=== PATIENT | male | born 1995 | race Caucasian/White ===

== ENCOUNTER 2016-12-08 12:18 | Emergency (ER) | payer BC, OTHER ==
[2016-12-08 12:23] VITALS: RESP 16
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
[2016-12-08 14:27] VITALS: BP 140/71; PULSE 71; TEMP 97.9; O2SAT 96
== END 2016-12-08 14:27 | disposition home or self-care (01) ==
DX: G44.82 Headache associated with sexual activity (principal)

== ENCOUNTER 2016-12-10 13:01 | Emergency (ER) | payer OTHER ==
[2016-12-10 13:08] VITALS: BP 122/70; PULSE 52; RESP 18; TEMP 97.9; O2SAT 96
== END 2016-12-10 13:44 | disposition left against medical advice (07) ==
DX: Z53.21 Procedure and treatment not carried out due to patient leaving prior to being seen by health care provider (principal)

== ENCOUNTER 2016-12-10 20:54 | Emergency (ER) | payer OTHER ==
[2016-12-10 21:00] VITALS: O2SAT 96
[2016-12-10] MEDS ORDERED: NS 1,000 ML IV ONE (21:38)
[2016-12-10] MEDS ORDERED: IOPAMIDOL (ISOVUE-300) 100 ML BTL ONE (21:50)
[2016-12-10] MEDS ORDERED: CYCLOBENZAPRINE 10 MG TAB PO ONE (21:50)
--- NOTE | 2016-12-10 21:52 | EDPHY ---
H & P Stated Complaint: neck tension, pcp told to come for LP and MRI HPI/ROS: CHIEF COMPLAINT: Neck pain, injury HISTORY OF PRESENT ILLNESS: Patient complains of posterior neck pain and soft tissue. This started 2 days ago while having intercourse. He felt a sudden onset of pain in the neck it was severe. He was evaluated here with CT scan of the head that was negative. He was discharged home he has been taking Advil. The pain was better the next morning, but today it is significantly returned. No midline tenderness. No headache. No nausea or vomiting. No stiffness of the neck. No neuro complaints distally. No other associated complaints with this. Contacted a primary care physician that he associates with, and they recommend that he come here for further testing. He says he was has not come here. He was actually sitting in the waiting room earlier today and felt that he did not need to be of thus he left and then came back. REVIEW OF SYSTEMS: Ten systems reviewed and are negative unless otherwise noted in the HPI PAST MEDICAL HISTORY: Denies any medical history SOCIAL HISTORY: Smokes tobacco FAMILY HISTORY: Noncontributory EXAMINATION General Appearance: Alert, no distress Head: normocephalic, atraumatic Eyes: Pupils equal and round, no conjunctival pallor or injection ENT, Mouth: Mucous membranes moist Neck: Normal inspection, supple. No midline tenderness. No crepitus, step- off or deformity. No meningismus or rigidity. There is tenderness in the soft tissue, paraspinous musculature throughout the neck. There is tenderness at the occiput at the insertion of the musculature. Respiratory: No distress or retractions. Lungs are clear Cardiovascular: Regular rate and rhythm. No murmur. Gastrointestinal: Abdomen is soft and nontender Back: No bony tenderness. Normal range of motion. Neurological: GCS 15. A&O, nonfocal, normal gait. Strength is symmetric in all 4 limbs. Skin: Warm and dry, no rash. No petechiae or purpura Extremities: Nontender, no pedal edema Psychiatric: Mood and affect normal DIFFERENTIAL DIAGNOSES: Including but not limited to muscular strain, muscle spasm, muscular tear, ligamentous injury, hematoma MDM: 9:49 p.m. Continuing neck pain without any meningismus or rigidity. No headache of any kind. This is temporal and colicky. Neuro intact. Imaging was not performed of the neck, thus I will obtain a CT scan of the neck soft tissue. Patient was instructed to present to ED by a PCP that felt he needed an LP and MRI. This was without examining the patient. I do not feel he warrants an LP are MRI at this time. He has no headache or meningismus. He has normal vital signs. His neuro exam is fully and intact. He has no evidence of subarachnoid hemorrhage, meningitis, epidural hematoma or intracranial abnormality. He is resting comfortably in no acute distress. Examination does exhibit muscular strain and muscle spasm of the paraspinous musculature of the neck. 10:30 p.m. Patient re-evaluated. Resting comfortably in no acute distress. Neck pain is improving. Still has no midline tenderness. No meningismus. Neuro intact. 10:55 p.m. Notified by radiologist Dr. Duarte. CT scan of the neck reveals no acute findings. I have re-evaluated the patient. He is feeling 100% improved on the Flexeril. No pain of any kind. Discharged home with continue Flexeril medication as needed every 8 hours. Continue Advil [id number] as needed. Follow up with primary care physician. ED precautions discussed. He is comfortable with this plan and discharged home stable condition SUPERVISION: Patient was evaluated in conjunction with the supervising physician. Please see their note for details. Source: Patient Exam Limitations: No limitations - Personal History Current Tetanus Diphtheria and Acellular Pertussis (TDAP): Yes Tetanus Vaccine Date: 2011 - Medical/Surgical History Hx Asthma: No Hx Chronic Respiratory Disease: No Hx Diabetes: No Hx Cardiac Disease: No Hx Renal Disease: No Hx Cirrhosis: No Hx Alcoholism: No Hx HIV/AIDS: No Hx Splenectomy or Spleen Trauma: No Other PMH: denies - Social History Smoking Status: Current some day smoker Constitutional: Initial Vital Signs Temperature (C) 98.2 F 12/10/16 20:58 Heart Rate 97 12/10/16 20:58 Respiratory Rate 18 12/10/16 20:58 Blood Pressure 145/84 H 12/10/16 20:58 O2 Sat (%) 96 12/10/16 20:58 O2 Delivery Mode Room Air Allergies/Adverse Reactions: No Known Allergies Allergy (Verified 12/10/16 13:05) Home Medications: Medication Instructions Recorded Cyclobenzaprine [Flexeril 10 MG 10 mg PO TID PRN #15 tab 08/14/17 (*)] Medical Decision Making - Diagnostics Imaging Results: Imaging Impressions Neck CT 12/10/16 21:39 Impression: No evidence of neck hematoma, abscess, focal fluid collection, or significant adenopathy. Findings and recommendations discussed with Emergency Department physicianGerman at 22:43 hour, 12/10/2016. Final report concurs with initial preliminary interpretation. - Data Points Laboratory Results: 12/10/16 21:57 POC Hgb 17.7 gm/dL H gm/dL (13.7-17.5) POC Hct 52 % H % (40-51) POC Sodium 143 mEq/L mEq/L (134-144) POC Potassium 4.0 mEq/L mEq/L (3.3-5.0) POC Chloride 104 mEq/L mEq/L (97-110) POC BUN 11 mg/dL mg/dL (7-23) POC Creatinine 0.7 mg/dL mg/dL (0.7-1.3) POC Glucose 88 mg/dL mg/dL (70-100) Medications Given: Discontinued Medications Cyclobenzaprine HCl (Flexeril) 10 mg PO EDNOW ONE Stop: 12/10/16 21:51 Last Admin: 12/10/16 21:58 Dose: 10 mg Sodium Chloride (Ns) 1,000 mls @ 0 mls/hr IV ONCE ONE; Wide Open PRN Reason: Protocol Stop: 12/10/16 21:39 Last Admin: 12/10/16 21:58 Dose: 1,000 mls Point of Care Test Results: 12/10/16 21:57 POC Sodium 143 POC Potassium 4.0 POC Chloride 104 POC BUN 11 POC Creatinine 0.7 POC Glucose 88 Departure - Departure Disposition: Home, Routine, Self-Care Clinical Impression: Cervical myofascial strain Qualifiers: Encounter type: initial encounter Qualified Code(s): S16.1XXA - Strain of muscle, fascia and tendon at neck level, initial encounter Condition: Good Instructions: Cervical Strain (ED) Additional Instructions: 1. Flexeril as prescribed as needed 2. [id number] anti-inflammatories as knee 3. Follow up with primary care physician for definitive care Referrals: NONE *PRIMARY CARE P,. [Primary Care Provider] - As per Instructions Gen Carlos MD [Medical Doctor] - As per Instructions Prescriptions: Cyclobenzaprine [Flexeril 10 MG (*)] 10 mg PO TID PRN #15 tab PRN Reason: Spasms
[2016-12-10 23:11] VITALS: BP 133/63; PULSE 80; RESP 16; TEMP 98.1
== END 2016-12-10 23:10 | disposition home or self-care (01) ==
DX: S16.1XXA Strain of muscle, fascia and tendon at neck level, initial encounter (principal); F17.200 Nicotine dependence, unspecified, uncomplicated; X58.XXXA Exposure to other specified factors, initial encounter
CPT/HCPCS: 82947-QW; Q9967